=== PATIENT | female | born 1960 | race African-American/Black ===

== ENCOUNTER 2018-01-07 06:11 | Day surgery (SDC) | payer MEDICAID ==
[~2018-01-07] VITALS: Ht 172.7 cm; Wt 66.7 kg
[~2018-01-07 06:11] MED LIST: ALBU18HF2 IH; ALBU18HF2 INH; ASPI-518 PO; CARV3.1242 PO; COG2 PO; GLIM2TAB2 PO; HAL1 PO; ISOS60TA4 PO; MAGN400T26 PO; METF1000 PO; PIOG15TA6 PO; POTA25TA8 PO; SIMV20TA6 PO
[2018-01-07] MEDS ORDERED: BENA40TA3 PO (07:31)
[2018-01-07] MEDS ORDERED: LEVA15HF4 IH (07:31)
[2018-01-07] MEDS ORDERED: NIFE60TA64 PO (07:31)
[2018-01-07] MEDS ORDERED: FLUT9.9S NS (07:31)
[2018-01-07] MEDS ORDERED: [UNRECOGNIZED DRUG - REMARK] PO (07:31)
[2018-01-07] MEDS ORDERED: LIDOCAINE HCL 1% 20ML VIAL (Pyxis) INJ ONE ×2 (08:28→09:20)
[2018-01-07] MEDS ORDERED: IODIXANOL 320MG/ML 100 ML BOTTLE IV ONE (08:28)
[2018-01-07] MEDS ORDERED: FENTANYL CITRATE/PF 50MCG/ML 2ML VIAL ONE (08:43)
[2018-01-07] MEDS ORDERED: MIDAZOLAM HCL 2 MG/2 ML VIAL ONE ×2 (08:43→09:52)
[2018-01-07] MEDS ORDERED: IOHEXOL-300 100 ML BOTTLE ONE (09:24)
[2018-01-07] MEDS ORDERED: HYDRALAZINE 20MG/ML VIAL ONE (09:38)
[2018-01-07] MEDS ORDERED: ONDANSETRON HCL 4MG/2ML VIAL IV PRN (10:15)
[2018-01-07] MEDS ORDERED: HEPARIN SODIUM 1,000 UNIT/1ML VIAL IV ONE (14:18)
[2018-01-07] MEDS ORDERED: NICARDIPINE 100MCG/ML 10ML VIAL (CATH LAB) IV ONE (14:20)
[2018-01-07] MEDS ORDERED: NITROGLYCERIN 50MCG/ML 10ML VIAL (CATH LAB) IV ONE (14:20)
== END 2018-01-07 16:15 | disposition home or self-care (01) ==
LOC: CCL 06:11
PROVIDERS: ATTEND Specialist
DX: I25.10 Atherosclerotic heart disease of native coronary artery without angina pectoris (principal); R94.39 Abnormal result of other cardiovascular function study; I13.10 Hypertensive heart and chronic kidney disease without heart failure, with stage 1 through stage 4 chronic kidney disease, or unspecified chronic kidney disease; E11.22 Type 2 diabetes mellitus with diabetic chronic kidney disease; N18.9 Chronic kidney disease, unspecified; F32.9 Major depressive disorder, single episode, unspecified; Z88.0 Allergy status to penicillin; Z79.82 Long term (current) use of aspirin; Z79.899 Other long term (current) drug therapy; Z98.61 Coronary angioplasty status; Z98.890 Other specified postprocedural states; Z83.3 Family history of diabetes mellitus; Z82.49 Family history of ischemic heart disease and other diseases of the circulatory system
CPT/HCPCS: 82962; 93458; 99152; 99153; C1760; C1769; C1887; C1893; J0360; J1644; J2250; J3010; J3490; Q9967

== ENCOUNTER 2018-08-07 13:43 | Emergency (ER) | payer MEDICAID ==
[~2018-08-07] VITALS: Ht 172.7 cm; Wt 73.0 kg
[~2018-08-07 13:43] MED LIST changes: -ALBU18HF2 IH; -ALBU18HF2 INH; +BENA40TA9 PO; -CARV3.1242 PO; +FLUT9.9S NS; -ISOS60TA4 PO; +LEVA15HF4 IH; -MAGN400T26 PO; +NIFE60TA64 PO; -SIMV20TA6 PO; +[UNRECOGNIZED DRUG - REMARK] PO
[2018-08-07] MEDS ORDERED: METOPROLOL TARTRATE 25MG TABLET PO ONE (21:00)
[2018-08-07 21:42] LABS: BASOPHILS % 0.6 % (0.0-2.0); EOSINOPHILS % 0.7 % (0.0-5.0); HEMATOCRIT. 36.7 % (36.0-48.0); HEMOGLOBIN. 11.7 g/dL (12.0-16.0); LYMPHOCYTES % 22.4 % (20.0-50.0); MEAN CORPUSCULAR VOLUME 90.6 fL (81.0-99.0); MONOCYTES % 5.4 % (2.0-8.0); NEUTROPHILS % 70.9 % (40.0-76.0); PLATELET 409 x1000/uL (130-400); RED BLOOD CELL COUNT 4.05 mill/uL (4.2-5.4); RED CELL DISTRIBUTION WIDTH 14.6 % (11.6-14.6)
[2018-08-07 21:47] LABS: CHLORIDE 107 mEq/L (98-107)
[2018-08-07 23:32] VITALS: BP 150/88
== END 2018-08-08 00:14 | disposition home or self-care (01) ==
LOC: ER 14:08
DX: E11.22 Type 2 diabetes mellitus with diabetic chronic kidney disease (principal); I12.9 Hypertensive chronic kidney disease with stage 1 through stage 4 chronic kidney disease, or unspecified chronic kidney disease; N18.3 Chronic kidney disease, stage 3 (moderate); R00.0 Tachycardia, unspecified; Z88.0 Allergy status to penicillin; Z98.61 Coronary angioplasty status; Z79.82 Long term (current) use of aspirin; Z87.891 Personal history of nicotine dependence; Z79.84 Long term (current) use of oral hypoglycemic drugs
CPT/HCPCS: 36415; 71045; 80053; 84484; 85025; 93005; 99284; Z7610

== ENCOUNTER 2019-02-25 15:17 | Emergency (ER) | payer MEDICAID ==
[~2019-02-25] VITALS: Ht 175.3 cm; Wt 76.0 kg
[~2019-02-25 15:17] MED LIST changes: -FLUT9.9S NS; -LEVA15HF4 IH; -PIOG15TA6 PO; -[UNRECOGNIZED DRUG - REMARK] PO
[2019-02-25 17:43] LABS: *AMPHETAMINES SCREEN URINE NEGATIVE (NEGATIVE); *BARBITURATES SCREEN URINE NEGATIVE (NEGATIVE); *BENZODIAZEPINES SCREEN URINE NEGATIVE (NEGATIVE)
[2019-02-25 17:44] LABS: *COCAINE SCREEN URINE NEGATIVE (NEGATIVE); CANNABINOID URINE SCREEN NEGATIVE (NEGATIVE); METHADONE URINE SCREEN NEGATIVE (NEGATIVE); OPIATES URINE SCREEN NEGATIVE (NEGATIVE); PHENCYCLIDINE URINE SCREEN NEGATIVE (NEGATIVE)
[2019-02-25] MEDS ORDERED: HALOPERIDOL LACTATE 5MG/ML VIAL IM ONE (17:45)
[2019-02-25 18:00] LABS: BASOPHILS % 0.6 % (0.0-2.0); EOSINOPHILS % 0.9 % (0.0-5.0); HEMATOCRIT. 22.6 % (36.0-48.0); HEMOGLOBIN. 7.6 g/dL (12.0-16.0); LYMPHOCYTES % 15.1 % (20.0-50.0); MEAN CORPUSCULAR HEMOGLOBIN 29.7 pg (28.0-32.0); MEAN CORPUSCULAR VOLUME 87.8 fL (81.0-99.0); MEAN PLATELET VOLUME 7.3 fl (7.4-10.4); MONOCYTES % 6.4 % (2.0-8.0); PLATELET 457 x1000/uL (130-400); RED BLOOD CELL COUNT 2.57 mill/uL (4.2-5.4); RED CELL DISTRIBUTION WIDTH 16.3 % (11.6-14.6)
[2019-02-25 18:07] LABS: CHLORIDE 102 mEq/L (98-107)
[2019-02-25 18:11] LABS: ETHANOL BLOOD < 10 mg/dL
[2019-02-25 18:25] LABS: CLARITY URINE TURBID (CLEAR); COLOR URINE YELLOW (YELLOW); KETONES URINE NEGATIVE (NEGATIVE); LEUKOCYTE ESTERASE URINE 2+ (NEGATIVE); NITRITE URINE NEGATIVE (NEGATIVE); OCCULT BLOOD URINE TRACE (NEGATIVE); PROTEIN URINE 1+ (NEGATIVE); SPECIFIC GRAVITY URINE 1.008 (1.005-1.030); UROBILINOGEN URINE 0.2 E.U./dL (0.2-1.0)
[2019-02-25] MEDS ORDERED: CEPHALEXIN 250MG CAPSULE PO ONE (19:00)
[2019-02-25] MEDS ORDERED: SODIUM CHLORIDE 0.9% 1,000 ML IV NR (20:30)
[2019-02-25] MEDS ORDERED: LORAZEPAM 2MG/ML CPJ IM PRN (21:30)
[2019-02-25] MEDS ORDERED: CEPHALEXIN 250MG CAPSULE PO NR (22:00)
[2019-02-25] MEDS ORDERED: BENZTROPINE MESYLATE 1MG TABLET PO ONE (22:45)
[2019-02-26] MEDS ORDERED: CEPHALEXIN 250MG CAPSULE PO SCH (09:00)
[2019-02-26 12:33] VITALS: BP 122/61
== END 2019-02-26 14:35 | disposition home or self-care (01) ==
LOC: ER 15:17
DX: R44.3 Hallucinations, unspecified (principal); E11.9 Type 2 diabetes mellitus without complications; I10 Essential (primary) hypertension; Z95.5 Presence of coronary angioplasty implant and graft; Z79.82 Long term (current) use of aspirin; Z88.0 Allergy status to penicillin; Z79.899 Other long term (current) drug therapy
CPT/HCPCS: 36415; 80048; 80305; 80307; 80320; 80329; 81003; 85025; 96372; 99284; J1630; J2060; G0480